=== PATIENT | female | born 1975 | race Caucasian/White ===

== ENCOUNTER 2019-09-27 19:11 | Emergency (ER) | payer MEDICAID, SELFPAY ==
[2019-09-27 19:22] VITALS: BP 147/82; PULSE 87; RESP 16; TEMP 36.5; O2SAT 99
--- NOTE | 2019-09-27 19:31 | ED.GENADULT ---
HPI - General Adult General Chief complaint: Upper Respiratory Infection Stated complaint: cough ears sore throat Time Seen by Provider: 09/27/19 19:31 Source: patient Mode of arrival: ambulatory Limitations: no limitations History of Present Illness HPI narrative: 43-year-old female patient presents to the [facility] with complaints of cold symptoms for the past week. Patient states she has had pain to the left ear along with sore throat pain. Patient states she has had a cough with some shortness of breath at times. Patient states she only has chest pain when she coughs. Patient states she is an active smoker. Denies getting a flu shot this year. Patient denies taking anything for her symptoms Related Data Allergies Allergy/AdvReac Type Severity Reaction Status Date / Time Penicillins Allergy Hives Verified 09/27/19 19:41 Review of Systems Review of Systems: Narrative: CONSTITUTIONAL: Denies fever, chills, or sweats. EYES: Denies visual changes, redness, or discharge. ENT: Positive rhinorrhea, congestion, sore throat, and left otalgia. CARDIOVASCULAR: Denies chest pain, palpitations, or edema. RESPIRATORY: Positive cough with dyspnea. GASTROINTESTINAL: Denies abdominal pain, nausea, vomiting, or diarrhea. GENITOURINARY: Denies dysuria or hematuria. SKIN: Denies rash or itching. MUSCULOSKELETAL: Denies back pain, joint pain, or myalgia. NEUROLOGIC: Denies headache, numbness, or weakness. PSYCHIATRIC: Denies anxiety or depression. PMFSH Comments At the time of my signature I agree with nursing past medical history, surgical, social, and family history. There is no relevant family history pertinent to the presenting complaint. Exam Narrative: Exam Narrative: GENERAL: Well-appearing, well-nourished, and in no acute distress. HEAD: Normocephalic, atraumatic. No tenderness noted to frontal maxillary sinuses on palpation. EYES: PERRLA and EOMI. ENT: Nares with erythema and edema noted bilaterally, no rhinorrhea or epistaxis. Mucous membranes moist. Posterior pharynx with 2+ tonsil enlargement erythema noted. Bilateral TMs are clear with no erythema or foreign bodies in the canal. NECK: Supple. No lymphadenopathy CHEST: Patient has some expiratory wheezing noted to bilateral lower lobes on auscultation. No respiratory distress. Patient able talk in clear complete sentences. No tripoding noted. HEART: Regular rate and rhythm. No murmur heard. Normal peripheral pulses. ABDOMEN: Soft, nontender, nondistended, normal active bowel sounds. EXTREMITIES: Normal range of motion. No edema. SKIN: Warm, dry, no rash. NEURO: No focal deficits. Alert and oriented x3. Course Reevaluation(s) Reevaluation #1: Reevaluated patient after DuoNeb was completed. Patient states that she does feel like she can breathe a little bit easier. Patient's lungs are clear to bilateral upper and lower lobes. Discussed with her that her strep today is negative. Discussed with her she can get an [id number] antihistamine and a nasal steroid to help with the congestion symptoms and I will prescribe her an oral steroid as well as an inhaler to help with the coughing and wheezing symptoms. Patient verbalized understanding denies any other questions or concerns at this time. Date: 09/27/19 Time: 20:12 Vital Signs Vital signs: Vital Signs Temperature 36.5 C 09/27/19 19:22 Pulse Rate 87 09/27/19 19:22 Respiratory Rate 16 09/27/19 19:22 Blood Pressure 147/82 H 09/27/19 19:22 Pulse Oximetry 99 09/27/19 19:22 Temperature 36.5 C 09/27/19 19:22 Pulse Rate 87 09/27/19 19:22 Respiratory Rate 16 09/27/19 19:22 Blood Pressure 147/82 H 09/27/19 19:22 Pulse Oximetry 99 09/27/19 19:22 Vital signs reviewed. The patient has been informed that they may have pre-hypertension or Hypertension based on a BP reading in the department. I recommend that the patient call the primary care provider listed on their discharge instructions or a phy
[2019-09-27] MEDS: IPRATROPIUM BR 0.02% INH SOLN 0.5 MG/2.5 ML VIAL INHALATION (19:46)
[2019-09-27] MEDS: ALBUTEROL SULFATE NEB 2.5 MG/3 ML INH INHALATION (19:46)
== END 2019-09-27 20:15 | disposition home or self-care (01) ==
PROVIDERS: Emergency Provider Nurse Practitioner Family
DX: J06.9 Acute upper respiratory infection, unspecified (principal); R05 Cough; J02.9 Acute pharyngitis, unspecified
CPT/HCPCS: 87081; 87880; 94640; 99213; G0463

== ENCOUNTER 2020-11-14 15:09 | Emergency (ER) | payer OTHER, SELFPAY ==
--- NOTE | ~2020-11-14 | XR_ITS ---
EXAMINATION: XR chest 2V DATE: 11/14/2020 16:27 INDICATION: Right upper back pain TECHNIQUE: PA and lateral views of the chest are obtained. COMPARISON: None available FINDINGS: The lungs are free of acute opacities. There is no pleural effusion or pneumothorax. The ca rdiomediastinal silhouette is normal. There is mild thoracic spondylosis. There is mild thoracic dext rocurvature. IMPRESSION: 1. No acute cardiopulmonary abnormality. Reviewed, dictated and finalized at location A.
[2020-11-14 15:25] VITALS: BP 168/80; PULSE 79; RESP 18; TEMP 36.7; O2SAT 98
--- NOTE | 2020-11-14 15:30 | ED.FEMALEGU ---
HPI - Female Genitourinary General Chief complaint: Urogenital-Female Stated complaint: Urogenital-Female Time Seen by Provider: 11/14/20 15:30 Source: patient and RN notes reviewed Mode of arrival: ambulatory Limitations: no limitations History of Present Illness HPI Narrative: 44-year-old female presents with concern for suprapubic pressure, worse on the left, dark malodorous urine for several days. She also reports 2-month history of right upper back pain. Reports back pain worsens with movement, reports back pain does not improve with [id number] medications. 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 She reports she is a smoker, smokes approximately 8 cigarettes daily. She denies any abnormal vaginal discharge, bleeding. Reports she has had UTIs in the past. MD elicited complaint: UTI Related Data Allergies Allergy/AdvReac Type Severity Reaction Status Date / Time Penicillins Allergy Hives Verified 11/14/20 15:20 Review of Systems Review of Systems: Narrative: CONSTITUTIONAL: Denies malaise, chills, sweats, or fever. CARDIOVASCULAR: Denies chest pain, palpitations, or edema. RESPIRATORY: Denies cough or dyspnea. GASTROINTESTINAL: Denies abdominal pain, nausea, vomiting, diarrhea, bloody, or mucous stools. GENITOURINARY: Denies dysuria or hematuria. Reports frequency, dark-colored urine, foul-smelling urine. SKIN: Denies rash or itching. MUSCULOSKELETAL: Reports right upper back pain. Denies myalgia. All systems reviewed & are unremarkable except as noted in HPI and below PMFSH Comments At time of signature, agree with nursing past medical, surgical, social and family history. There is no relevant family history pertinent to the presenting complaint Exam Narrative: Exam Narrative: GENERAL: Well-appearing, well-nourished, and in no acute distress. HEAD: Normocephalic. EYES: PERRLA, conjunctivae clear. NECK: Supple. No lymphadenopathy CHEST: Clear to auscultation, breath sounds equal. No bony deformities or asymmetry. No respiratory distress. HEART: Regular rate and rhythm. ABDOMEN: Soft, nontender upon palpation, nondistended, normal active bowel sounds, no palpable or pulsatile masses, no guarding. No CVA tenderness SKIN: Warm, dry, no rash. NEURO: Alert and oriented x3. PSYCH: Normal mood and affect Course Course Emergency Course: Patient is aware of diagnosis, understands and agrees to treatment plan. Anticipatory guidance given. Patient agrees to follow-up as directed and is aware of reasons to seek care at the emergency department. Portions of this record may have been created with voice recognition software Vital Signs Vital signs: Reviewed. Patient has been instructed to follow up with her primary care provider within the next week regarding her elevated blood pressure today. MDM - Female Genitourinary MDM Narrative Medical decision making narrative: No risk factors or findings concerning for epidural abscess, diskitis, vertebral osteomyelitis, cord compression, cauda equina, vertebral fracture or bone malignancy, AAA, or pyelonephritis. Patient instructed to consider further imaging and workup through their primary care physician as an outpatient if symptoms persist. Exam findings and UA show no acute concerns or changes; patient is non-toxic appearing and is in no distress. Patient is appropriate for outpatient treatment and follow-up. Imaging Data My impression: Images reviewed, interpreted by radiologist, agree, see report. Radiologist's impression: EXAMINATION: XR chest 2V DATE: 11/14/2020 16:27 INDICATION: Right upper back pain TECHNIQUE: PA and lateral views of the chest are obtained. COMPARISON: None available FINDINGS: The lungs are free of acute opacities. There is no pleural effusion or pneumothorax. The cardiomediastinal silhouette is normal. There is mild thoracic spondylosis. There is mild thoracic dextrocurvature. IMPRESSION: 1. No acu
== END 2020-11-14 16:34 | disposition home or self-care (01) ==
PROVIDERS: Emergency Provider Nurse Practitioner
DX: R82.90 Unspecified abnormal findings in urine (principal); M54.6 Pain in thoracic spine; Z87.440 Personal history of urinary (tract) infections
CPT/HCPCS: 71046; 81003; 81025; 87086; 87088; 99213; G0463

== ENCOUNTER 2022-03-17 10:29 | Emergency (ER) | payer OTHER, SELFPAY ==
[2022-03-17 10:34] VITALS: BP 141/75; PULSE 83; RESP 14; TEMP 36.8; O2SAT 96
--- NOTE | 2022-03-17 10:37 | ED.URI ---
HPI - URI/Sore Throat General Chief Complaint: Upper Respiratory Infection Stated Complaint: Chest Congestion/Cough Time Seen by Provider: 03/17/22 10:37 Source: patient Mode of arrival: ambulatory Limitations: no limitations History of Present Illness HPI Narrative: Ms. Soler is a 46-year-old female patient presenting to the clinic today with cough and chest congestion x5 days. She reports she has had a productive cough with yellow/green phlegm with wheezing and shortness of breath. Is a current smoker and has history of asthma. She denies any fever or chills. No known covid exposure. States that she did a covid test on Wednesday and it was negative. MD elicited complaint: cough and nasal congestion Related Data Home Medications Medication Instructions Recorded Confirmed albuterol sulfate 90 mcg/actuation 2 puff inhalation Q4-6H PRN 03/17/22 03/17/22 aerosol inhaler Shortness Of Breath Or Wheezing Allergies Allergy/AdvReac Type Severity Reaction Status Date / Time Penicillins Allergy Hives Verified 03/17/22 10:47 Review of Systems Review of Systems: Pertinent positives per HPI. Patient denies any fever, chills, rash, headache, visual changes, dizziness, shortness of breath, chest pain, palpitations, nausea, vomiting, diarrhea, constipation, abdominal pain, or any urinary issues. PMFSH Comments At the time of my signature, I reviewed and agree with the nursing past medical, surgical, social, and family history. There is no relevant family history pertinent to the patient complaint. Exam Narrative: General: Well-developed, well nourished, in no apparent distress Head: Normocephalic, atraumatic Eyes: Pupils equally round and reactive to light bilaterally, EOM intact, sclera and conjunctive clear, no discharge, lids normal Ears: TMs intact and clear, ear canals clear, no drainage, grossly hearing normal. Nose: Nares patent, no discharge, no inflammation, no sinus tenderness. Mouth: Oral pharynx without lesions or masses, good dentition, MMM. Neck: Supple, trachea midline, no enlargement of anterior or posterior cervical nodes, no thyroid masses or goiter palpable. Cardio: Regular rate and rhythm, s1 and s2 normal, no murmur appreciated. Resp: Expiratory wheezing posteriorly in right upper and left upper lobes, diminished in the bases, no rhonchi, rales, or rubs Course Course Emergency Course: Portions of this record may have been created with voice recognition software. Level of Care: Express Care Visit Vital Signs Vital signs: Vital signs reviewed MDM - URI/Sore Throat MDM Narrative Medical decision making narrative: At the time of visit patient is resting comfortably on exam table. She is a current smoker with a productive yellow-green cough with expiratory wheezing. History of asthma. I will treat her as an asthma exacerbation and give her prescription for some Tessalon Perles, prednisone, azithromycin, and albuterol inhaler. Supportive measures were discussed with the patient she voiced understanding of discharge instructions and agrees to the treatment plan Differential Diagnosis Differential diagnosis: Likely upper respiratory infection, sinusitis, viral infection, bronchitis, influenza, pharyngitis and other (COVID) Discharge Plan Discharge Clinical Impression: Bronchitis Patient Disposition: Home, Self-Care Condition: Stable Instructions: Antibiotic Form, Acute Bronchitis (ED) Additional Instructions: Take prescription medications only as prescribed- prednisone, albuterol inhaler, azithromycin, and tessalon pearls as prescribed. Increase fluids and stay well hydrated Tylenol/motrin for pain/fever Flonase and OTC antihistamines as directed Vicks vapor rub to open sinuses Sinus rinses for congestion Cepacol spray, cough drops, throat lozenges, warm tea with honey/lemon, gargle salt water to soothe throat BRAT diet for diarrhea Clear liquids x 24 hours then advan
== END 2022-03-17 10:55 | disposition home or self-care (01) ==
PROVIDERS: Emergency Provider Nurse Practitioner Family
DX: J40 Bronchitis, not specified as acute or chronic (principal)
CPT/HCPCS: 99213; G0463

== ENCOUNTER 2022-04-20 12:11 | Emergency (ER) | payer OTHER, SELFPAY ==
--- NOTE | ~2022-04-20 | XR_ITS ---
EXAMINATION: XR chest 2V DATE: 04/20/2022 12:41 INDICATION: Cough TECHNIQUE: Cough COMPARISON: 11/14/2020 FINDINGS: The lungs are free of acute opacities. No pleural effusion or pneumothorax. The cardiomedia stinal silhouette is normal. There is mild thoracic spondylosis. IMPRESSION: 1. No acute cardiopulmonary abnormality. Reviewed, dictated and finalized at location B.
[2022-04-20 12:16] VITALS: BP 148/86; PULSE 77; RESP 14; TEMP 36.6; O2SAT 100
--- NOTE | 2022-04-20 12:38 | ED.URI ---
HPI - URI/Sore Throat General Chief Complaint: Upper Respiratory Infection Stated Complaint: Ear Pain/Sore Throat Time Seen by Provider: 04/20/22 12:38 Source: patient and RN notes reviewed Mode of arrival: ambulatory Limitations: no limitations History of Present Illness HPI Narrative: 46 y/o female presented for c/o right ear and right sided throat pain for 2 days. Endorses she has been coughing since 03/17/22, recent treatment for bronchitis, completed steroids and antibiotics from pcp. Denies shortness of breath, chest pain, wheezing, nausea, vomiting, fever. States her family was recently ill. MD elicited complaint: cough Related Data Home Medications Medication Instructions Recorded Confirmed budesonide-formoterol HFA 160 1 puff inhalation EVERY OTHER DAY 04/20/22 04/20/22 mcg-4.5 mcg/actuation aerosol inhaler (Symbicort) bupropion HCl 150 mg 24 hr tablet, 150 mg PO DAILY 04/20/22 04/20/22 extended release meloxicam 15 mg tablet 15 mg PO DAILY 04/20/22 04/20/22 nicotine 21 mg/24 hr daily 1 patch topical USEASDIRECTD 04/20/22 04/20/22 transdermal patch Allergies Allergy/AdvReac Type Severity Reaction Status Date / Time Penicillins Allergy Hives Verified 04/20/22 12:31 Review of Systems Review of Systems: CONSTITUTIONAL: denies malaise, chills, sweats, fever EYES: Denies visual changes, redness, or discharge ENT: Reports rhinorrhea, congestion, otalgia, sore throat CARDIOVASCULAR: Denies chest pain, palpitations, edema RESPIRATORY: Reports cough, post nasal drainage. Denies dyspnea GASTROINTESTINAL: Denies abdominal pain, nausea, vomiting, diarrhea SKIN: Denies rash or itching MUSCULOSKELETAL: denies myalgia NEUROLOGIC: Denies headache Exam Narrative: GENERAL: well-appearing EYES: conjunctivae clear ENT: Mucous membranes moist. TM pearly tony with dull light reflex bilaterally; no tragal tenderness. Oropharynx erythematous without lesions or exudate, no drooling, no hoarseness, no trismus, uvula midline. No tripod positioning, muffled voice, soft palate or pharyngeal wall bulging NECK: Supple. No lymphadenopathy CHEST: Clear to auscultation, diminished in bases. breath sounds equal. HEART: Regular rate and rhythm. SKIN: Warm, dry, no rash. NEURO: Alert and oriented x3. Course Course Emergency Course: Patient is aware of diagnosis, understands and agrees to treatment plan. Anticipatory guidance given. Patient agrees to follow-up as directed and is aware of reasons to seek care at the emergency department. Portions of this record may have been created with voice recognition software Level of Care: Express Care Visit Vital Signs Vital signs: Vital Signs Temperature 97.8 F 04/20/22 12:16 Pulse Rate 77 04/20/22 12:16 Respiratory Rate 14 04/20/22 12:16 Blood Pressure 148/86 H 04/20/22 12:16 Pulse Oximetry 100 04/20/22 12:16 Oxygen Delivery Room Air 04/20/22 12:16 Temperature 97.8 F 04/20/22 12:16 Pulse Rate 77 04/20/22 12:16 Respiratory Rate 14 04/20/22 12:16 Blood Pressure 148/86 H 04/20/22 12:16 Pulse Oximetry 100 04/20/22 12:16 Oxygen Delivery Room Air 04/20/22 12:16 reviewed MDM - URI/Sore Throat MDM Narrative Medical decision making narrative: CXR reviewed with pt. Strep negative. advised supportive measures and signs/symptoms to go to the ER. Pt is appropriate for outpt treatment and f/u. Differential Diagnosis Differential diagnosis: Likely upper respiratory infection, sinusitis and viral infection Lab Data Labs: Strep Screen Presumptive Negative *(Reference Range: Negative)* Imaging Data Radiologist's impression: Patient: Joseline Soler : 1975 MR#: [id number] Age/Sex: 46 / F Acct:[id number] Loc: [facility]? ? ADM Date: 04/20/22Attending Dr: Ordering Physician: Mónica Robison APRN Date of Service: 04/20/22 Procedure(s): XR chest 2V Accession Num
== END 2022-04-20 13:38 | disposition home or self-care (01) ==
PROVIDERS: Emergency Provider Nurse Practitioner Family; PCP Internal Medicine
DX: J06.9 Acute upper respiratory infection, unspecified (principal)
CPT/HCPCS: 71046; 87081; 87880; 99213; G0463

== ENCOUNTER 2024-06-21 14:16 | Emergency (ER) | payer OTHER, SELFPAY ==
[2024-06-21 14:22] VITALS: BP 141/79; PULSE 80; RESP 16; TEMP 36.5; O2SAT 99
--- NOTE | 2024-06-21 15:21 | ED.URI ---
HPI - URI/Sore Throat General Chief Complaint: Upper Respiratory Infection Stated Complaint: Sore Throat Time Seen by Provider: 06/21/24 14:50 Source: patient, RN notes reviewed and old records reviewed Mode of arrival: ambulatory Limitations: no limitations History of Present Illness HPI Narrative: 48 year old female presents to [facility] care with complaints of sore throat, cough, some vomiting from coughing for one week duration, reports no fevers. Patient reports that she has taken some OTC cold medication. Patient reports that daughter diagnosed with strep today in clinic. MD elicited complaint: cough, sore throat, rhinorrhea and nasal congestion Onset (ago): week(s) (1) Pain scale (0-10): 8 Able to tolerate fluids by mouth: Yes Treatments prior to arrival: cold medicine Related Data Home Medications Medication Instructions Recorded Confirmed drospirenone (contraceptive) 4 mg 06/21/24 (28) tablet (Slynd) Allergies Allergy/AdvReac Type Severity Reaction Status Date / Time Penicillins Allergy Hives Verified 06/21/24 14:38 Review of Systems Review of Systems: CONSTITUTIONAL:Reports malaise, no chills, sweats, or fever. EYES: Denies visual changes, redness, or discharge. ENT: Reports rhinorrhea, congestion,no sinus pain,no otalgia and positive for sore throat. CARDIOVASCULAR: Denies chest pain, palpitations, or edema. RESPIRATORY: Reports cough.? Denies dyspnea. GASTROINTESTINAL: Denies abdominal pain,positive for nausea, vomiting,no diarrhea SKIN: Denies rash or itching. MUSCULOSKELETAL: Denies myalgia. NEUROLOGIC: Denies headache. All systems reviewed & are unremarkable except as noted in HPI and below PMFSH Past Medical History Medical History (Updated 06/22/24 @ 14:46 by Sofia Holloway NP) Asthma Bronchitis UTI (urinary tract infection) Social History Social History (Updated 06/22/24 @ 14:42 by Sofia Holloway NP) Smoking status: Current every day smoker Tobacco type: cigarettes Alcohol intake: current Alcohol use details: social Substance use: unknown Living arrangements: with family Gender identity (if verbalized by the patient): Female Comments At time of signature, agree with nursing past medical, surgical, social and family history. There is no relevant family history pertinent to the presenting complaint Exam Narrative: GENERAL: Well-appearing, well-nourished, and in no acute distress. HEAD: Normocephalic EYES: PERRLA, conjunctivae clear ENT: Nares clear, turbinates edematous and erythematous, clear discharge. Mucous membranes moist. TM pearly tony with dull light reflex bilaterally; no tragal tenderness. Oropharynx erythematous without lesions. Tonsils not enlarged and without exudate, no drooling, no hoarseness, no trismus, uvula midline.post nasal drainage NECK: Supple. No lymphadenopathy CHEST: Clear to auscultation, breath sounds equal. No wheezing, rhonchi, rales, or stridor. No respiratory distress, speaks in full sentences.dry cough SAO2 99% on room air HEART: Regular rate and rhythm. No murmur heard. SKIN: Warm, dry, no rash. NEURO: Alert and oriented x3. PSYCH: Normal mood and affect Course Course Emergency Course: Patient is aware of diagnosis, understands and agrees to treatment plan.? Anticipatory guidance given.? Patient agrees to follow-up as directed and is aware of reasons to seek care at the emergency department. Portions of this record may have been created with voice recognition software Level of Care: Express Care Visit Vital Signs Vital signs: Vital Signs Temperature 36.5 C 06/21/24 14:22 Pulse Rate 80 06/21/24 14:22 Respiratory Rate 16 06/21/24 14:22 Blood Pressure 141/79 H 06/21/24 14:22 Pulse Oximetry 99 06/21/24 14:22 Oxygen Delivery Room Air 06/21/24 14:22 Temperature 36.5 C 06/21/24 14:22 Pulse Rate 80 06/21/24 14:22 Respiratory Rate 16 06/21/24 14:22 Blood Pressure 141/79 H 06/21/24 14:22 Pulse Oximetry 99 06/21/24 14:22 Oxygen Delivery Room Air 06/21/24 14:22 Reviewed MDM - URI/Sore Throat MDM Narrative Medical decision making narrative: Differential diagnosis considered: Mason virus, strep pharyngitis, allergic rhinitis, upper respiratory tract infection, sinusitis, rhinosinusitis, nasopharyngitis. viral pharyngitis, otitis media, otitis externa, pneumonia, bronchitis, viral cough syndrome, viral syndrome, and influenza.? Exam findings show no acute concerns or changes; patient is non-toxic appearing and is in no distress.? Patient is appropriate for outpatient treatment and follow-up. Differential Diagnosis Differential diagnosis: Likely upper respiratory infection, viral infection, pharyngitis and other (strep pharyngitis, cough) Medical Records Attestation: I reviewed the patient's medical records. Lab Data Attestation: I reviewed the patient's lab results. Lab results narrative: Strep screen negative culture sent Labs: Lab Results 06/21/24 Range/Units 15:40 POC Grp A Strep Screen Negative (Negative) Critical Care Time Critical Care Time Critical Care Time: No Discharge Plan Discharge Clinical Impression: Congestion of nasal sinus Cough Qualifiers: Cough type: acute Qualified Code(s): R05.1 - Acute cough Patient Disposition: Home, Self-Care Condition: Stable Instructions: Antibiotic Form, Acute Cough (ED) Additional Instructions: Increase fluids especially juices and water [id number] cough and cold medicine of your choice for your symptoms Zyrtec Claritin or Louisa daily include Coricidin brand decongestant Tylenol or ibuprofen Steroids as directed--take with food heat to the face 20-30 minutes 4-6 times a day for pain Salt water gargles, throat lozenges or throat sprays as desired If your symptoms persist, change or worsen significantly before you can contact your personal physician then please, without delay, go to the emergency department for further evaluation. Follow-up with PCP in 7-10 days or sooner if needed Follow up with PCP soon in regards to your blood pressure which is elevated above threshold for referral. Blood pressure above 120/80 may indicate pre-hypertension. 141/79 Your strep test today was negative. A throat culture will be sent to the laboratory for further testing. IF the test is positive, you will receive a phone call within 48 hours and an appropriate antibiotic will be initiated at that time. Prescriptions: New prednisone 20 mg tablet 20 mg PO BID Qty: 10 0RF Rx Instructions: A.m. and early p.m. No Action Slynd 4 mg (28) tablet Follow-up/Referrals: Maude,MD Katarina [Primary Care Provider] - Time of Disposition: 15:26 Quality Aundrea Coma Scale Eyes: Open Verbal: Oriented and Alert Motor: Follows Commands Carson Coma Total Score: 15
[2024-06-21 15:42] LABS: EDSTREPNEGPOS1 Negative (Negative)
== END 2024-06-21 15:37 | disposition home or self-care (01) ==
PROVIDERS: Emergency Provider Registered Nurse; PCP Internal Medicine
DX: R09.81 Nasal congestion (principal); R05.1 Acute cough; J45.909 Unspecified asthma, uncomplicated; F17.210 Nicotine dependence, cigarettes, uncomplicated
CPT/HCPCS: 87081; 87880; 99213; G0463

== ENCOUNTER 2024-10-03 11:22 | Emergency (ER) | payer OTHER, SELFPAY ==
[2024-10-03 11:30] VITALS: BP 165/92; PULSE 109; RESP 18; TEMP 36.7; O2SAT 98
--- NOTE | 2024-10-03 11:50 | ED_ITS ---
HPI - General Adult General Chief complaint: Ear Stated complaint: Ear Pain/Sore Throat Source: patient Mode of arrival: ambulatory Limitations: no limitations History of Present Illness HPI narrative: Pt presents for evaluation of sick symptoms. Symptoms include bilateral ear pain, sore throat and cough for the past two days. She denies SOB, nausea, vomiting or diarrhea. She has not taken any medication for her symptoms. She smokes 1/2 ppd. Related Data Home Medications ?Medication ?Instructions ?Recorded ?Confirmed ?Last Taken ?Type drospirenone (contraceptive) 4 mg 06/21/24 Unknown History (28) tablet (Slynd) Allergies Allergy/AdvReac Type Severity Reaction Status Date / Time Penicillins Allergy Hives Verified 10/03/24 11:32 Review of Systems Review of Systems: CONSTITUTIONAL: Denies fever, chills, or sweats. EYES: Denies visual changes, redness, or discharge. ENT: Reports ear pain and sore throat CARDIOVASCULAR: Denies chest pain, palpitations, or edema. RESPIRATORY: Reports cough. Denies dyspnea. GASTROINTESTINAL: Denies abdominal pain, nausea, vomiting, or diarrhea. GENITOURINARY: Denies dysuria or hematuria. SKIN: Denies rash or itching. MUSCULOSKELETAL: Denies back pain, joint pain, or myalgia. NEUROLOGIC: Denies headache, numbness, dizziness, or weakness. PSYCHIATRIC: Denies anxiety or depression. PMFSH Past Medical History Medical History Asthma UTI (urinary tract infection) Bronchitis Surgical History Surgical History No pertinent past surgical history Family History Family History (Updated 10/03/24 @ 11:55 by VIRGINIA Cole, ) Mother Family history non-contributory Social History Social History Smoking status: Current every day smoker Tobacco type: cigarettes Alcohol intake: current Alcohol use details: social Substance use: unknown Living arrangements: with family Gender identity (if verbalized by the patient): Female Exam Narrative: GENERAL: Well-appearing, well-nourished, and in no acute distress. HEAD: Normocephalic, atraumatic. EYES: PERRLA and EOMI. ENT: Nares clear, no rhinorrhea or epistaxis. Mucous membranes moist. Oropharynx without tonsillar hypertrophy exudate or other lesions. Bilateral tympanic membranes erythematous and bulging NECK: Supple. No adenopathy or masses. No carotid bruits or JVD CHEST: Clear to auscultation. No respiratory distress. No wheezes rales or rhonchi HEART: Regular rate and rhythm. No murmur heard. Normal peripheral pulses. ABDOMEN: Soft, nontender, nondistended, normal active bowel sounds. EXTREMITIES: Normal range of motion. No edema. SKIN: Warm, dry, no rash. NEURO: No focal deficits. Alert and oriented x3. PSYCH: Normal mood and affect. Course Course Emergency Course: This is a 48-year-old female who presented for evaluation of sick symptoms. She has evidence of otitis media exam. Will treat with augmentin. She requested a script for ibuprofen for pain. She should follow up with primary provider and go to the ER for worsening symptoms. Pt in agreement with plan of care. Level of Care: Express Care Visit Vital Signs Vital signs: Vital Signs Temperature 36.7 C 10/03/24 11:30 Pulse Rate 109 H 10/03/24 11:30 Respiratory Rate 18 10/03/24 11:30 Blood Pressure 165/92 H 10/03/24 11:30 Pulse Oximetry 98 10/03/24 11:30 Oxygen Delivery Room Air 10/03/24 11:30 Temperature 36.7 C 10/03/24 11:30 Pulse Rate 109 H 10/03/24 11:30 Respiratory Rate 18 10/03/24 11:30 Blood Pressure 165/92 H 10/03/24 11:30 Pulse Oximetry 98 10/03/24 11:30 Oxygen Delivery Room Air 10/03/24 11:30 Medical Decision Making Vital Signs Vital Signs: Vital Signs Temperature 36.7 C 10/03/24 11:30 Pulse Rate 109 H 10/03/24 11:30 Respiratory Rate 18 10/03/24 11:30 Blood Pressure 165/92 H 10/03/24 11:30 Pulse Oximetry 98 10/03/24 11:30 Oxygen Delivery Room Air 10/03/24 11:30 Temperature 36.7 C 10/03/24 11:30 Pulse Rate 109 H 10/03/24 11:30 Respiratory Rate 18 10/03/24 11:30 Blood Pressure 165/92 H 10/03/24 11:30 Pulse Oximetry 98 10/03/24 11:30 Oxygen Delivery Room Air 10/03/24 11:30 Discharge Plan Discharge Clinical Impression: Otitis media Patient Disposition: Home, Self-Care Condition: Stable Instructions: Antibiotic Form, Ear Infection (ED) Patient Language: Cameroonian Prescriptions: New amoxicillin-pot clavulanate 875-125 mg tablet 1 tablet PO Q12H Qty: 20 0RF ibuprofen 800 mg tablet 800 mg PO TID PRN (Reason: pain) Qty: 60 0RF No Action Slynd 4 mg (28) tablet Follow-up/Referrals: Rosie Dubois DO [Physician] - Stand Alone Forms: Work/School Release IP Time of Disposition: 11:46
--- OUTSIDE RECORDS SUMMARY | 2024-10-03 13:32 | XMS_ITS | Referral Summary ---
Author Organization [facility] Medical Office Building B Address [address] [place] [address] Care Team Providers Care Transition Mgr Name Role Phone Taz Jameson MD Primary Care Provider [phone] Allergies Active Allergy Reactions Criticality Noted Date Comments Penicillins Medications drospirenone, contraceptive, (Slynd) tablet tablet TAKE 1 TABLET(4 MG) BY MOUTH DAILY 84 tablet 1 06/29/2024 Active Active Problems No known active problems Social History Tobacco Use Types Packs/Day Years Used Date Smoking Tobacco: Every Day Cigarettes Tobacco Cessation:Ready to Q uit: Not Asked; Counseling Given: Not Answered PHQ-2 Answer Date Recorded PHQ-2 Total Score (If total score is 3 or more points, staff should administer the PHQ-9) 0 06/25/2023 Comments No Sex and Gender Information Value Date Recorded Sex Assigned at Not on file Legal Sex Female 3:29 AM SENIOR RISK MANAGER Gender Identity Not on file Sexual Orientation Not on file Last Filed Vital Signs Vital Sign Reading Time Taken Comments Blood Pressure 130/72 06/25/2023 1:09 PM SENIOR RISK MANAGER Pulse 82 10/29/2014 2:33 PM CDT Temperature - - Respiratory Rate - - Oxygen Saturation 98% 10/29/2014 2:33 PM CDT Inhaled Oxygen Concentration - - Weight 76.7 kg (169 lb) 06/25/2023 1:09 PM SENIOR RISK MANAGER Height 154.9 cm (5' 1 ) 10/29/2014 2:33 PM CDT Body Mass Index 31.93 10/29/2014 2:33 PM CDT Plan of Treatment Not on file Procedures Procedure Name Priority Date/Time Associated Diagnosis Comments PAP AND HPV, REFLEX TO HPV GENOTYPES Routine 06/25/2023 2:09 PM SENIOR RISK MANAGER Well woman exam SCREENING MAMMOGRAM BILATERAL W ERIK Schedule Routine, Read Routine (OP Routine) 01/01/2021 4:15 PM CDT Encounter for screening mammogram for malignant neoplasm of breast from Last 3 Months or Most Recently Relevant to Health Maintenance Results * Pap and HPV, reflex to HPV Genotypes (06/25/2023 2:09 PM SENIOR RISK MANAGER) CLINICAL INFORMATION: [facility] Comment:Routine exam LMP [facility] [employer] [facility] Comment:02/2023 Previous Pap [facility] Comment:NONE GIVEN Prev. Bx [facility] Comment:NONE GIVEN SOURCE: [facility] Comment:Cervix, Endocervix Pap, specimen adequacy [facility] Comment: Satisfactory for evaluation. Endocervical/transformation zone component present. HPV interp [facility] Comment: Cytology Results: Negative for intraepithelial lesion or malignancy. Patient Escort Que [facility] Comment: BES, CT(ASCP) CT screening location: [place] [address] [place] [address] Comment [facility] Comment: EXPLANATORY NOTE: The Pap is a screening test for cervical cancer. It is not a diagnostic test and is subject to false negative and false positive results. It is most reliable when a satisfactory sample, regularly obtained, is submitted with relevant clinical findings and history, and when the Pap result is evaluated along with historic and current clinical information. EFFECTIVE JULY 05, 2023, the version of ThinPrep you ordered, commonly known as manual ThinPrep, will be DISCONTINUED. An alternative form of ThinPrep, called ThinPrep Imaging, will continue to be available. For a copy of the client communication (TIS Client Letter) showing TIS test codes, see www.[employer]/Resources, and navigate to Well-Woman>Physician Materials>TIS Client Letter. You can also call for test code assistance. Human papillomavirus DNA, High Risk E6/E7 Not Detected NOT DETECTED [employer] [place] Comment: Not Detected High Risk HPV types (16,18,31,33,35,39,45,51,52, 56,58,59,66,68) were not detected. Other HPV types which cause anogenital lesions may be present. The significance of the other types of HPV in malignant processes has not been established. Methodology: Real Time PCR Thin prep 06/25/2023 2:09 PM SENIOR RISK MANAGER 06/28/2023 6:45 AM SENIOR RISK MANAGER Joseline Tapia DOUBLE END TENONER OPERATOR LAB CYTOLOGY ORDERABLES Final Re sult [facility] [address] [place] [address] [employer] [facility] [address] [facility] [place] [address] * Screening Mammogram Bilateral W Erik (01/01/2021 4:15 PM CDT) Anatomical Region Laterality Modality Breast Bilateral Mammography 01/02/2021 8:16 AM CDT Impressions 01/02/2021 8:16 AM CDT There is no mammographic evidence of malignancy. A 1 year screening mammogram is recommended. BI-RADS: 1 - Negative. The patient will be entered into a reminder system with a target due date of 1 year for her next mammogram. Electronically signed by: Kika Ulrich MD Narrative 01/02/2021 8:16 AM CDT EXAMINATION: SCREENING MAMMOGRAM BILATERAL W ERIK ORDERING HEALTHCARE PROVIDER: ART PERLA HISTORY: Routine screening mammography. COMPARISON: None TECHNIQUE: CC and MLO views of the bilateral breasts were obtained with digital technique using breast tomosynthesis with C view. Computer aided detection was utilized. FINDINGS: DENSITY: There are scattered fibroglandular elements in the bilateral breasts. BREASTS: There are no suspicious masses, suspicious calcifications, or other suspicious findings in either breast. There has been no suspicious interval change. us Art Perla MD IMG MAMMO PROCEDURES Final Re sult from Last 3 Months or Most Recently Relevant to Health Maintenance Insurance [facility] Care Teams Transition Mgr Relationship Specialty Start Date End Date Taz Jameson MD PCP - General 09/29/19
--- OUTSIDE RECORDS SUMMARY | 2024-10-03 13:32 | XMS_ITS | Clinical Summary ---
Author Organization [facility] Address [address] [place] [address] Care Team Providers Care Reinforcing Iron And Rebar Workers Name Role Phone Ida Vera TEST DIRECTOR-CALENDER WIND UP HELPER Primary Care Provider + Source Comments [facility],non-owned Affiliates and Associated Physician Practices is amultiple site organization consisting of ambulatory clinics and hospital sitesin [place], [place], [place] and [place]. This disclosure is being madepursuant to the Care Everywhere program and may not contain all information available regarding this patient. Last updated 18.[facility] [employer] Social History Tobacco Use Types Packs/Day Years Used Date Smoking Tobacco: Never Assessed Sex and Gender Information Value Date Recorded Sex Assigned at Female 10/06/2023 10:43 AM DEVELOPMENT INTERN Gender Identity Not on file Sexual Orientation Not on file Plan of Treatment Health Maintenance Due Date Last Done Comments COLOGUARD (AGES 45-75) - COL ON CA SCREENING 1977 COLON MONITORING 1977 COLONOSCOPY - COLON CA SCREENING 1977 CT COLONOGRAPHY - COLON CA SCREENING 1977 Colorectal Cancer Screening 1977 FIT - COLON CA SCREENING 1977 FLEX SIG - COLON CA SCREENING 1977 LIPID TESTING 1977 MAMMOGRAM 1977 PAP SMEAR 1977 HIV SCREENING 1992 HEPATITIS C SCREENING 12/11/1995 DTAP/TDAP/TD VACCINES (1 - Tdap) 1996 HEPATITIS B VACCINE (1 of 3 - 19+ 3-dose series) 1996 COVID-19 VACCINE ( - 2023-2 5 season) 2024 INFLUENZA VACCINE (#1) 2024 DEPRESSION SCREENING 08/09/2024 ZOSTER VACCINE (1 of 2) 12/16/2027 HIB VACCINE Aged Out No longer eligi ble based on patient's age to complete this topic HPV VACCINE Aged Out No longer eligi ble based on patient's age to complete this topic MENINGOCOCCAL (Group B) VACCINE Aged Out No longer eligible based on patient's age to complete this topic MENINGOCOCCAL VACCINE Aged Out No jair sadiq eligible based on patient's age to complete this topic PNEUMOCOCCAL VACCINE Aged Out No long er eligible based on patient's age to complete this topic Care Teams Reinforcing Iron And Rebar Workers Relationship Specialty Start Date End Date Ida Vera, TEST DIRECTOR-CALENDER WIND UP HELPER [address] Condon [address] [place] [id number] PCP - General 10/05/19
--- OUTSIDE RECORDS SUMMARY | 2024-10-03 13:32 | XMS_ITS | Referral Summary ---
Author Organization [facility] Address [address] [place] [address] Care Team Providers Care Operational Trainer Name Role Phone Ida Vera SEAL MIXER-FEED BLENDER Primary Care Provider + Source Comments [facility],non-owned Affiliates and Associated Physician Practices is amultiple site organization consisting of ambulatory clinics and hospital sitesin [place], [place], [place] and [place]. This disclosure is being madepursuant to the Care Everywhere program and may not contain all information available regarding this patient. Last updated 18.[facility] Social History Tobacco Use Types Packs/Day Years Used Date Smoking Tobacco: Never Assessed Sex and Gender Information Value Date Recorded Sex Assigned at Female 10/06/2023 10:43 AM HVAC SALES REPRESENTATIVE Gender Identity Not on file Sexual Orientation Not on file Plan of Treatment Not on file Care Teams Operational Trainer Relationship Specialty Start Date End Date Ida Vera SEAL MIXER-FEED BLENDER [address] [facility] Condon [address] [place] [phone] PCP - General 10/05/19
--- OUTSIDE RECORDS SUMMARY | 2024-10-03 13:32 | XMS_ITS | Clinical Summary ---
Author Organization [facility] Medical Office Building B Address [address] [place] [address] Care Team Providers Care Potato Picker Name Role Phone Taz Jameson MD Primary Care Provider [phone] Allergies Active Allergy Reactions Criticality Noted Date [...] on file Legal Sex Female 3:29 AM NURSE STAFF INDUSTRIAL Gender Identity Not on file Sexual Orientation Not on file Obstetrics History Para Term AB IAB SAB Ectopic Multiple Livin g Live Births 3 1 1 Date Outcome GA Total Labor Labor/2nd/3rd Weight Sex Type Anes PTL Kaya A1 A5 Name Clin Term Last Filed Vital Signs Vital Sign Reading Time Taken Comments Blood Pressure 130/72 06/25/2023 1:09 PM NURSE STAFF INDUSTRIAL Pulse 82 10/29/2014 2:33 PM CDT Temperature - - Respiratory Rate - - Oxygen Saturation 98% 10/29/2014 2:33 PM CDT Inhaled Oxygen Concentration - - Weight 76.7 kg (169 lb) 06/25/2023 1:09 PM NURSE STAFF INDUSTRIAL Height 154.9 cm (5' 1 ) 10/29/2014 2:33 PM CDT Body Mass Index 31.93 10/29/2014 2:33 PM CDT Plan of Treatment Health Maintenance Due Date Last Done Comments Colon Cancer Screening-Colonoscopy 1977 Hepatitis C Screening 1977 Hepatitis B Screening 12/16/1995 Pneumococcal vaccine <65 (1 of 2 - PCV) 1996 Breast Cancer Screening-Mammogram 01/01/2022 021 Influenza Vaccine (#1) 2024 Cervical Cancer Screening 06/25/2024 06/25/2023 Depression Screening 06/25/2024 06/25/2023 Regular Well Visit/Exam 18-64 06/25/2024 06/25/2023 DTaP/Tdap/Td Vaccine (2 - Td or Tdap) 07/13/2033 07/13/2023 HPV Vaccines Aged Out No longer eligi ble based on patient's age to complete this topic Procedures Procedure Name Priority Date/Time Associated Diagnosis Comments PAP AND HPV, REFLEX TO HPV GENOTYPES Routine 06/25/2023 2:09 PM NURSE STAFF INDUSTRIAL Well woman exam SCREENING MAMMOGRAM BILATERAL W ERIK Schedule Routine, Read Routine (OP Routine) 01/01/2021 4:15 PM CDT Encounter for screening mammogram for malignant neoplasm of breast from Last 3 Months or Most Recently Relevant to Health Maintenance Results * Pap and HPV, reflex to HPV Genotypes (06/25/2023 2:09 PM NURSE STAFF INDUSTRIAL) CLINICAL INFORMATION: [facility] Comment:Routine exam LMP [facility] Comment:02/[address] [facility] Comment:NONE GIVEN Prev. Bx [employer] [facility] Comment:NONE GIVEN SOURCE: [employer] [facility] Comment:Cervix, Endocervix Pap, specimen adequacy [employer] [facility] Comment: Satisfactory for evaluation. Endocervical/transformation zone component present. HPV interp [employer] [facility] Comment: Cytology Results: Negative for intraepithelial lesion or malignancy. Support Services Manager [facility] [employer] [facility] Comment: BES, CT(ASCP) CT screening location: [place] [address] [place] [address] Comment [employer] [facility] Comment: EXPLANATORY NOTE: The Pap is a [...] Client Letter) showing TIS test codes, see www.[employer]/Resources, and navigate to [facility]oman>Physician Materials>TIS Client Letter. You can also call for test code assistance. Human papillomavirus DNA, High Risk E6/E7 Not Detected NOT DETECTED [facility] [employer] [facility] [place] Comment: Not Detected High Risk HPV types (16,18,31,33,35,39,45,51,52, 56,58,59,66,68) were not detected. Other HPV types which cause anogenital lesions may be present. The significance of the other types of HPV in malignant processes has not been established. Methodology: Real Time PCR Thin prep 06/25/2023 2:09 PM NURSE STAFF INDUSTRIAL 06/28/2023 6:45 AM NURSE STAFF INDUSTRIAL Joseline Tapia SNUFF BOX FINISHER LAB CYTOLOGY ORDERABLES Final Re sult [facility] [address] [place] [phone] [facility] [address] [place] [address] * Screening Mammogram Bilateral W Erik (01/01/2021 [...] There has been no suspicious interval change. Art Perla MD IMG MAMMO PROCEDURES Final Re sult from Last 3 Months or Most Recently Relevant to Health Maintenance Insurance [id number] [place] [address] [facility] Care Teams Potato Picker Relationship Specialty Start Date End Date Taz Jameson MD PCP - General 09/29/19
--- OUTSIDE RECORDS SUMMARY | 2024-10-03 13:32 | XMS_ITS | Patient Health Summary ---
Author Organization [facility] Address [address] [place] [address] Care Team Providers Care Scrum Master Name Role Phone Ida Vera Primary Care Provider + Note from [facility],non-owned Affiliates and Associated Physician Practices is amultiple site organization consisting of ambulatory clinics and hospital sitesin [place], [place], [place] and [place]. This disclosure is being madepursuant to the Care Everywhere program and may not contain all information available regarding this patient. Last updated 18.[facility] Social History Tobacco Use Types Packs/Day Years Used Date Smoking Tobacco: Never Assessed Sex and Gender Information Value Date Recorded Sex Assigned at Female 10/06/2023 10:43 AM NATURAL RESOURCE SPECIALIST Gender Identity Not on file Sexual Orientation Not on file Care Teams Scrum Master Relationship Specialty Start Date End Date Ida Vera APRN-CNP [address] [place] [address] Dr Condon [address] [place] [id number] PCP - General 10/05/19
== END 2024-10-03 11:51 | disposition home or self-care (01) ==
PROVIDERS: Emergency Provider Nurse Practitioner
DX: H66.93 Otitis media, unspecified, bilateral (principal); F17.210 Nicotine dependence, cigarettes, uncomplicated; J45.909 Unspecified asthma, uncomplicated
CPT/HCPCS: 99213; G0463

== ENCOUNTER 2025-02-28 13:04 | Emergency (ER) | payer OTHER, MEDICAID, SELFPAY ==
--- OUTSIDE RECORDS SUMMARY | 2025-02-28 13:11 | XMS_ITS | Clinical Summary ---
Author Organization [facility] Address [address] [place] [address] Care Team Providers Care Executive Search Consultant Name Role Phone Ida Vera DISTRICT MEDICAL EXAMINER-WAFER MOUNTER Primary Care Provider + Source Comments [facility],non-owned Affiliates and Associated Physician Practices is amultiple site organization consisting of ambulatory clinics and hospital sitesin [place], [place], [place] and [place]. This disclosure is being madepursuant to the Care Everywhere program and may not contain all information available regarding this patient. Last updated 18.[facility] [employer] Social History Tobacco Use Types Packs/Day Years Used Date Smoking Tobacco: Never Assessed Comments Unknown Sex and Gender Information Value Date Recorded Sex Assigned at Female 10/06/2023 10:43 AM COMMUNICATIONS OFFICER Legal Sex Female 6:29 AM COMMUNICATIONS OFFICER Gender Identity Not on file Sexual Orientation [...] SCREENING 1977 LIPID TESTING 1977 MAMMOGRAM 1977 HIV SCREENING 1992 HEPATITIS C SCREENING 12/11/1995 DTAP/TDAP/TD VACCINES (1 - Tdap) 1996 HEPATITIS B VACCINE (1 of 3 - 19+ 3-dose series) 1996 PAP SMEAR 1998 COVID-19 VACCINE (2023-2 5 season) 2024 DEPRESSION SCREENING 08/09/2024 INFLUENZA VACCINE (#1) 2025 ZOSTER VACCINE (1 of 2) 12/16/2027 HIB VACCINE Aged Out No longer eligi ble based on patient's age to complete this topic HPV VACCINE Aged Out No longer eligi ble based on patient's age to complete this topic MENINGOCOCCAL (Group B) VACC INE SHARED DECISION-MAKING Aged Out No longer eligibl e based on patient's age to complete this topic MENINGOCOCCAL GROUPS A/C/Y/W VACCINE Aged Out No longer eligible b ased on patient's age to complete this topic PNEUMOCOCCAL VACCINE Aged Out No long er eligible based on patient's age to complete this topic Insurance MEDICAID - OUT OF [facility] Care Teams Executive Search Consultant Relationship Specialty Start Date End Date Ida Vera, DISTRICT MEDICAL EXAMINER-WAFER MOUNTER [address] Yajaira [address], [address] [place] [address] PCP - General 10/05/19
--- OUTSIDE RECORDS SUMMARY | 2025-02-28 13:12 | XMS_ITS | Clinical Summary ---
Author Organization [facility] Medical Office Building B Address [address] [place] [address] Care Team Providers Care Bakery Pastry Internship Name Role Phone Taz Jameson MD Primary Care Provider [phone] Allergies Active Allergy Reactions Criticality Noted Date Comments Penicillins Medications drospirenone, contraceptive, (Slynd) tablet tablet TAKE 1 TABLET(4 MG) BY MOUTH DAILY 84 tablet 1 06/29/2024 Active Active Problems No known active problems Encounters Date Type Department Care Team Description 01/02/2025 Telephone [facility] [address] [place] [address] [address] [place] [address] Joseline Tapia, HAND CLOTH CUTTER from Last 3 Months Social History Tobacco Use Types Packs/Day Years [...] on file Legal Sex Female 3:29 AM 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 Gender Identity Not on file Sexual Orientation Not on file Obstetrics History Para Term AB IAB SAB Ectopic Multiple Livin g Live Births 3 1 1 Date Outcome GA Total Labor Labor/2nd/3rd Weight Sex Type Anes PTL Kaya A1 A5 Name Clin Term Last Filed Vital Signs Vital Sign Reading Time Taken Comments Blood Pressure 130/72 06/25/2023 1:09 PM 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 Pulse 82 10/29/2014 2:33 PM CDT Temperature - - Respiratory Rate - - Oxygen Saturation 98% 10/29/2014 2:33 PM CDT Inhaled Oxygen Concentration - - Weight 76.7 kg (169 lb) 06/25/2023 1:09 PM 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 Height 154.9 cm (5' 1) 10/29/2014 2:33 PM CDT Body Mass Index 31.93 10/29/2014 2:33 PM CDT Plan of Treatment Health Maintenance Due Date Last Done Comments Colon Cancer Screening-Colonoscopy 1975 Hepatitis C Screening 1975 Hepatitis B Screening 12/16/1995 Pneumococcal vaccine <65 (1 of 2 - PCV) 1996 Breast Cancer Screening-Mammogram 01/01/2022 021 Cervical Cancer Screening 06/25/2024 06/25/2023 Depression Screening 06/25/2024 06/25/2023 Regular Well Visit/Exam 18-64 06/25/2024 06/25/2023 Influenza Vaccine (Season Ended) 2025 DTaP/Tdap/Td Vaccine (2 - Td or Tdap) 07/13/203312/2022 Procedures Procedure Name Priority Date/Time Associated Diagnosis Comments PAP AND HPV, REFLEX TO HPV GENOTYPES Routine 06/25/2023 2:09 PM 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 Well woman exam SCREENING MAMMOGRAM BILATERAL W ERIK Schedule Routine, Read Routine (OP Routine) 01/01/2021 4:15 PM CDT Encounter for screening mammogram for malignant neoplasm of breast from Last 3 Months or Most Recently Relevant to Health Maintenance Results * Pap and HPV, reflex to HPV Genotypes (06/25/2023 2:09 PM 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) CLINICAL INFORMATION: [facility] Comment:Routine exam LMP [facility] Comment:02/2023 Previous Pap [facility] Comment:NONE GIVEN Prev. Bx [facility] Comment:NONE GIVEN SOURCE: [facility] Comment:Cervix, Endocervix Pap, specimen adequacy [facility] Comment: Satisfactory for evaluation. Endocervical/transformation zone component present. HPV interp [facility] Comment: Cytology Results: Negative for intraepithelial lesion or malignancy. [employer]line [employer] [facility] Comment: BES, CT(ASCP) CT screening location: [place] [address] [address] [place] Comment [facility] Comment: EXPLANATORY NOTE: The Pap [...] Client Letter) showing TIS test codes, see www.Karaz/Resources, and navigate to Well-Woman>Physician Materials>TIS Client Letter. You can also call for test code assistance. Human papillomavirus DNA, High Risk E6/E7 Not Detected NOT DETECTED [facility] Comment: Not Detected High Risk HPV types (16,18,31,33,35,39,45,51,52, 56,58,59,66,68) were not detected. Other HPV types which cause anogenital lesions may be present. The significance of the other types of HPV in malignant processes has not been established. Methodology: Real Time PCR Thin prep 06/25/2023 2:09 PM 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 06/28/2023 6:45 AM 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 Joseline Tapia HAND CLOTH CUTTER LAB CYTOLOGY ORDERABLES Final Re sult ALIN [facility] [address] [place] [address] [facility] [address] [facility] [place] [address] * Screening Mammogram Bilateral W Erik (01/01/2021 [...] mammogram. Electronically signed by: Kika Ulrich MD [facility] 01/02/2021 8:16 AM CDT EXAMINATION: SCREENING MAMMOGRAM [...] Most Recently Relevant to Health Maintenance Insurance * Guarantor: Joseline Soler Account Type Relation to Patient Date of Phone Billing Address Personal/Family Self 1975 [address] [place] [address] [facility] Care Teams Bakery Pastry Internship Relationship Specialty Start Date End Date Taz Jameson MD PCP - General 09/29/19
--- OUTSIDE RECORDS SUMMARY | 2025-02-28 13:12 | XMS_ITS | Referral Summary ---
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 TACTICAL OFFICER Gender Identity Not on file Sexual Orientation Not on file Last Filed Vital Signs Vital Sign Reading Time Taken Comments Blood Pressure 130/72 06/25/2023 1:09 PM STAFF AIR TACTICAL OFFICER Pulse 82 10/29/2014 2:33 PM CDT Temperature - - Respiratory Rate - - Oxygen Saturation 98% 10/29/2014 2:33 PM CDT Inhaled Oxygen Concentration - - Weight 76.7 kg (169 lb) 06/25/2023 1:09 PM STAFF AIR TACTICAL OFFICER Height 154.9 cm (5' 1) 10/29/2014 2:33 PM CDT Body Mass Index 31.93 10/29/2014 2:33 PM CDT Plan of Treatment Not on file Procedures Procedure Name Priority Date/Time Associated Diagnosis Comments PAP AND HPV, REFLEX TO HPV GENOTYPES Routine 06/25/2023 2:09 PM STAFF AIR TACTICAL OFFICER Well woman exam SCREENING MAMMOGRAM BILATERAL W ERIK Schedule Routine, Read Routine (OP Routine) 01/01/2021 4:15 PM CDT Encounter for screening mammogram for malignant neoplasm of breast from Last 3 Months or Most Recently Relevant to Health Maintenance Results * Pap and HPV, reflex to HPV Genotypes (06/25/2023 2:09 PM STAFF AIR TACTICAL OFFICER) CLINICAL INFORMATION: [facility] Comment:Routine exam LMP [facility] Comment:02/2023 Previous Pap [facility] Comment:NONE GIVEN Prev. Bx [facility] Comment:NONE GIVEN SOURCE: [facility] Comment:Cervix, Endocervix Pap, specimen adequacy [facility] Comment: Satisfactory for evaluation. Endocervical/transformation zone component present. HPV interp [facility] Comment: Cytology Results: Negative for intraepithelial lesion or malignancy. 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 [address] Comment [facility] Comment: EXPLANATORY NOTE: The Pap is a [...] Client Letter) showing TIS test codes, see [email or web address]/Resources, and navigate to Well-Woman>Physician Materials>TIS Client Letter. You can also call for test code assistance. Human papillomavirus DNA, High Risk E6/E7 Not Detected NOT DETECTED [facility] Comment: Not Detected High Risk HPV types (16,18,31,33,35,39,45,51,52, 56,58,59,66,68) were not detected. Other HPV types which cause anogenital lesions may be present. The significance of the other types of HPV in malignant processes has not been established. Methodology: Real Time PCR Thin prep 06/25/2023 2:09 PM STAFF AIR TACTICAL OFFICER 06/28/2023 6:45 AM STAFF AIR TACTICAL OFFICER us Joseline Tpaia CHECKER [employer] LAB CYTOLOGY ORDERABLES Final Re sult ALIN [facility] [address] [place] [address] [facility] [facility] [address] [place] [address] * Screening Mammogram Bilateral W Erik (01/01/2021 [...] Most Recently Relevant to Health Maintenance Insurance [facility] Care Teams Sound Engineer Audio Control Relationship Specialty Start Date End Date Taz Jameson MD PCP - General 09/29/19
[2025-02-28 13:20] VITALS: BP 183/84; PULSE 86; RESP 16; TEMP 36.9; O2SAT 97
--- NOTE | 2025-02-28 13:29 | ED_ITS ---
HPI - Extremity Injury (Upper) General Chief Complaint: Extremity Injury, Upper Stated Complaint: Right Hand and finger Injury Time Seen by Provider: 02/28/25 13:29 Source: patient Mode of arrival: ambulatory Limitations: no limitations History of Present Illness HPI narrative: 49 y/o female presented for c/o right hand swelling and pain. Onset yesterday. States she had to use a gun machine repetitively for 4 hours then developed swelling. Today she says she cannot fully close the hand due to swelling. Rates 05/18. Did not take anything for pain. She will have workmans comp papers completed by pcp Related Data Home Medications ?Medication ?Instructions ?Recorded ?Confirmed ?Last Taken ?Type drospirenone (contraceptive) 4 mg 06/21/24 Unknown History (28) tablet (Slynd) Allergies Allergy/AdvReac Type Severity Reaction Status Date / Time Penicillins Allergy Hives Verified 10/03/24 11:32 Review of Systems Review of Systems: CONSTITUTIONAL: Denies body aches, fever, chills EYES: Denies visual changes ENT: Denies rhinorrhea, congestion CARDIOVASCULAR: Denies chest pain, palpitations, or edema. RESPIRATORY: Denies cough or dyspnea. SKIN: Denies rash, itching, or wounds. MUSCULOSKELETAL: reports back pain, joint pain, or myalgia. NEUROLOGIC: Denies headache, numbness, tingling, or weakness. All systems reviewed & are unremarkable except as noted in HPI and below PMFSH Past Medical History Medical History Asthma UTI (urinary tract infection) Bronchitis Surgical History Surgical History No pertinent past surgical history Family History Family History (Updated 10/03/24 @ 11:55 by VIRGINIA Cole, ) Mother Family history non-contributory Social History Social History Smoking status: Current every day smoker Tobacco type: cigarettes Alcohol intake: current Alcohol use details: social Substance use: unknown Living arrangements: with family Gender identity (if verbalized by the patient): Female Comments At time of signature, I have reviewed and agree with nursing past medical, surgical, social and family history unless otherwise noted. Please see nursing chart for further information. There is no relevant family history pertinent to the presenting complaint Exam Narrative: GENERAL: Well-appearing CHEST: Speaks in full sentences. No respiratory distress. HEART: Regular rate and rhythm. Normal and equal peripheral pulses. EXTREMITIES: Right hand mild swelling noted. Right hand and digits have normal strength and sensation. slightly decreased strength with digit flexion, extension due to subjective pain. Range of motion slightly decreased due to subjective pain. No clubbing, erythema or cyanosis, noted. No tenderness. Blister intact to 4th digit distal phalanx. Skin intact. Normal digital cascade with flexion of fingers, but endorses pain to 4th and 5th. Normal sensation of each side of finger. Can perform 'okay' sign, 'cross over finger test of index and middle fingers' and 'thumbs up' sign. No scissoring. Normal thumb opposition. Good capillary refill and radial pulse. Distal capillary refill less than 3 seconds. SKIN: Warm, dry, no rash. NEURO: Alert and oriented x3. PSYCH: Normal mood and affect Course Course Emergency Course: Patient is aware of diagnosis, understands and agrees to treatment plan. Anticipatory guidance given. Patient agrees to follow-up as directed and is aware of reasons to seek care at the emergency department. Portions of this record may have been created with voice recognition software Level of Care: Express Care Visit Vital Signs Vital signs: Vital Signs Temperature 98.5 F 02/28/25 13:20 Pulse Rate 86 02/28/25 13:20 Respiratory Rate 16 02/28/25 13:20 Blood Pressure 183/84 H 02/28/25 13:20 Pulse Oximetry 97 02/28/25 13:20 Oxygen Delivery Room Air 02/28/25 13:20 Temperature 98.5 F 02/28/25 13:20 Pulse Rate 86 02/28/25 13:20 Respiratory Rate 16 02/28/25 13:20 Blood Pressure 183/84 H 02/28/25 13:20 Pulse Oximetry 97 02/28/25 13:20 Oxygen Delivery Room Air 02/28/25 13:20 Reviewed MDM - Extremity Injury (Upper) MDM Narrative Medical decision making narrative: Shared decision making, no imaging at this time. reviewed RX. bandaid applied to blister of right 4th digit distal phalanx. HUONG wrap to hand, ice pack provided, pt did not want it filled at this time Discussed physical exam findings. Advised supportive measures and signs/symptoms to go to the ER. Pt is appropriate for outpt treatment and f/u. Differential Diagnosis Differential diagnosis: Likely other (sprain/strain of wrist, Colles' fracture, wrist fracture, hand fracture, dislocation of finger, gout, cellulitis, arthritis, tendonitis) Discharge Plan Discharge Clinical Impression: Swelling of right hand Patient Disposition: Home Condition: Stable Instructions: Antibiotic Form, Tendinitis (ED) Additional Instructions: Your blood pressure reading was elevated (above 120/80) please follow-up with your primary care provider for further evaluation and management. If you develop worsening Blood Pressure symptoms, (headache, vision changes, dizziness, vomiting, chest pain, etc) go to the ER. Call 911. Rest. activity as tolerated elevate the right hand Apply ice 15-20 minute intervals several times a day Keep it wrapped with HUONG as needed to reduce swelling Motrin 800mg every 8 hours, alternate with Tylenol 1000mg every 8 hours as needed Follow up with your primary care provider next week, call to schedule appointment. go to the ER for worsening symptoms or concerns Patient Language: [place] Islander Prescriptions: New ibuprofen 800 mg tablet 800 mg PO TID PRN (Reason: pain) Qty: 15 0RF No Action Slynd 4 mg (28) tablet Follow-up/Referrals: PHYSICIAN,CHILD CARE ASSOCIATE TEACHER [Primary Care Provider] - Stand Alone Forms: Work/School Release IP Time of Disposition: 13:40
== END 2025-02-28 13:56 | disposition home or self-care (01) ==
PROVIDERS: Emergency Provider Nurse Practitioner Family
DX: R22.31 Localized swelling, mass and lump, right upper limb (principal); F17.210 Nicotine dependence, cigarettes, uncomplicated; J45.909 Unspecified asthma, uncomplicated
CPT/HCPCS: 99213; G0463

== ENCOUNTER 2025-04-13 14:40 | Emergency (ER) | payer OTHER, SELFPAY ==
--- OUTSIDE RECORDS SUMMARY | 2025-04-13 14:41 | XMS_ITS | Clinical Summary ---
Author Organization [facility] Medical Office Building B Address [address] [place] [address] Care Team Providers Care Review Specialist Name Role Phone Taz Jameson MD Primary Care Provider [phone] Allergies Active Allergy Reactions Criticality Noted Date [...] on file Legal Sex Female 3:29 AM DAY CARE HOME MOTHER Gender Identity Not on file Sexual Orientation Not on file Obstetrics History Para Term AB IAB SAB Ectopic Multiple Livin g Live Births 3 1 1 Date Outcome GA Total Labor Labor/2nd/3rd Weight Sex Type Anes PTL Kaya A1 A5 Name Clin Term Last Filed Vital Signs Vital Sign Reading Time Taken Comments Blood Pressure 130/72 06/25/2023 1:09 PM DAY CARE HOME MOTHER Pulse 82 10/29/2014 2:33 PM CDT Temperature - - Respiratory Rate - - Oxygen Saturation 98% 10/29/2014 2:33 PM CDT Inhaled Oxygen Concentration - - Weight 76.7 kg (169 lb) 06/25/2023 1:09 PM DAY CARE HOME MOTHER Height 154.9 cm (5' 1) 10/29/2014 2:33 [...] Well Visit/Exam 18-64 06/25/2024 06/25/2023 Influenza Vaccine (#1) 2025 DTaP/Tdap/Td Vaccine (2 - Td or Tdap) 07/13/203312/2022 Procedures Procedure Name Priority Date/Time Associated Diagnosis Comments PAP AND HPV, REFLEX TO HPV GENOTYPES Routine 06/25/2023 2:09 PM DAY CARE HOME MOTHER Well woman exam SCREENING MAMMOGRAM BILATERAL W ERIK Schedule Routine, Read Routine (OP Routine) 01/01/2021 4:15 PM CDT Encounter for screening mammogram for malignant neoplasm of breast from Last 3 Months or Most Recently Relevant to Health Maintenance Results * Pap and HPV, reflex to HPV Genotypes (06/25/2023 2:09 PM DAY CARE HOME MOTHER) CLINICAL INFORMATION: [facility] Comment:Routine exam LMP [facility] [employer] [facility] Comment:02/2023 Previous Pap [facility] Comment:NONE GIVEN Prev. Bx [facility] [employer] [facility] Comment:NONE GIVEN SOURCE: [facility] Comment:Cervix, Endocervix Pap, specimen adequacy [facility] Comment: Satisfactory for evaluation. Endocervical/transformation zone component present. HPV interp [facility] [employer] [facility] Comment: Cytology Results: Negative for intraepithelial lesion or malignancy. 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 [address] Comment [facility] [employer] [facility] Comment: EXPLANATORY NOTE: The Pap is a [...] Client Letter) showing TIS test codes, see www.[employer]/Resources, and navigate to Well-Woman>Physician Materials>TIS Client Letter. You can also call for test code assistance. Human papillomavirus DNA, High Risk E6/E7 Not Detected NOT DETECTED [employer] [facility] Comment: Not Detected High Risk HPV types (16,18,31,33,35,39,45,51,52, 56,58,59,66,68) were not detected. Other HPV types which cause anogenital lesions may be present. The significance of the other types of HPV in malignant processes has not been established. Methodology: Real Time PCR Thin prep 06/25/2023 2:09 PM DAY CARE HOME MOTHER 06/28/2023 6:45 AM DAY CARE HOME MOTHER Joseline Tapia NP LAB CYTOLOGY ORDERABLES Final Re sult ALIN [facility] [address] [place] [address] [employer] [address] [facility] [place] [address] * Screening Mammogram Bilateral W Erik (01/01/2021 [...] Most Recently Relevant to Health Maintenance Insurance [facility] Care Teams Review Specialist Relationship Specialty Start Date End Date Taz Jameson MD [facility] - General 09/29/19
[2025-04-13 14:43] VITALS: BP 182/87; PULSE 80; RESP 18; TEMP 36.4; O2SAT 99
--- NOTE | 2025-04-13 15:06 | ED.URI ---
HPI - URI/Sore Throat General Chief Complaint: Upper Respiratory Infection Stated Complaint: Runny Nose/Sore Throat/Ear Pain/Diarrhea Time Seen by Provider: 04/13/25 15:07 Source: patient Mode of arrival: ambulatory Limitations: no limitations History of Present Illness HPI Narrative: 49-year-old female presents with complaint of fatigue, sore throat, body aches, chills, diarrhea and congestion for 2 days. Afebrile. Not taking any qtth-fbc-njuhrbe medications to treat her symptoms. No chest pain or shortness of breath. Patient concern for strep throat. All systems reviewed and negative except as noted above. Related Data Home Medications ?Medication ?Instructions ?Recorded ?Confirmed ?Last Taken ?Type drospirenone (contraceptive) 4 mg 06/21/24 Unknown History (28) tablet (Slynd) Allergies Allergy/AdvReac Type Severity Reaction Status Date / Time Penicillins Allergy Hives Verified 10/03/24 11:32 [facility] Past Medical History Medical History Asthma UTI (urinary tract infection) Bronchitis Surgical History Surgical History No pertinent past surgical history Family History Family History (Updated 10/03/24 @ 11:55 by SUSANA ColeP, ) Mother Family history non-contributory Social History Social History Smoking status: Current every day smoker Tobacco type: cigarettes Alcohol intake: current Alcohol use details: social Substance use: unknown Living arrangements: with family Gender identity (if verbalized by the patient): Female Comments At time of signature, agree with nursing past medical, surgical, social and family history. There is no relevant family history pertinent to the presenting complaint. Exam Narrative: GENERAL: This is a well-nourished, well-developed patient, in no apparent distress. HEAD: normocephalic, atraumatic. EYES: PERRL. Sclera clear/white. Vision is grossly intact. EARS: External ears normal, auditory canals clear and without drainage, TMs normal without perforation. Hearing grossly intact. NOSE: External nose normal with Clear nasal drainage THROAT: Mucous membranes moist, Mild erythema with mild swelling. No exudates. clear postnasal drainage. NECK: Neck supple, non-tender without lymphadenopathy, masses or thyromegaly. CARDIOVASCULAR: Regular rate and rhythm without murmurs, gallops, or rubs. RESPIRATORY: Clear to auscultation. Breath sounds equal bilaterally. No wheezes, rales, or rhonchi. SKIN: warm, Dry, intact with no suspicious lesions or rash, good texture and turgor. NEURO: awake, alert, and oriented to person, place and time. There were no obvious focal neurologic abnormalities. EXTREMITIES: No joint tenderness, effusion, or edema noted. Course Course Level of Care: Express Care Visit Vital Signs Vital signs: Vital Signs Temperature 36.4 C 04/13/25 14:43 Pulse Rate 80 04/13/25 14:43 Respiratory Rate 18 04/13/25 14:43 Blood Pressure 182/87 H 04/13/25 14:43 Pulse Oximetry 99 04/13/25 14:43 Oxygen Delivery Room Air 04/13/25 14:43 Temperature 36.4 C 04/13/25 14:43 Pulse Rate 80 04/13/25 14:43 Respiratory Rate 18 04/13/25 14:43 Blood Pressure 182/87 H 04/13/25 14:43 Pulse Oximetry 99 04/13/25 14:43 Oxygen Delivery Room Air 04/13/25 14:43 Reviewed MDM - URI/Sore Throat MDM Narrative Medical decision making narrative: negative COVID, influenza and strep. Strep culture ordered. Patient is well-appearing, nontoxic. Recommend hnkz-obs-zvienph medications to treat viral symptoms. Differential Diagnosis Differential diagnosis: Likely upper respiratory infection, sinusitis, viral infection and pharyngitis Lab Data Labs: Lab Results 04/13/25 Range/Units 15:16 POC Influenza A Ag Negative (Negative) POC Influenza B Ag Negative (Negative) POC SARS CoV-2 Ag Negative (Negative) POC Grp A Strep Screen Negative (Negative) Discharge Plan Discharge Clinical Impression: Upper respiratory infection, viral Patient Disposition: Home Condition: Stable Instructions: Upper Respiratory Infection (ED) Additional Instructions: Your strep, COVID, and influenza test were negative today. A strep culture was ordered and results will take 48 hours. If your strep culture is positive we will call you at that time and prescribed an antibiotic. Your symptoms are viral and may last 10-14 days. Taking crbb-nou-nwvutbc medication to treat her symptoms such as DayQuil NyQuil cold and flu. Take as directed on packaging. Drink plenty of water and rest. See your doctor if symptoms are not improving. Patient Language: Nepali Prescriptions: No Action Slynd 4 mg (28) tablet ibuprofen 800 mg tablet 800 mg PO TID PRN (Reason: pain) Qty: 15 0RF Follow-up/Referrals: PHYSICIAN,BAG FILLER MACHINE OPERATOR [Primary Care Provider, Internal Medicine] Stand Alone Forms: Work/School Release IP Time of Disposition: 15:17
[2025-04-13 15:18] LABS: EDCOVIDSCREEN Negative (Negative); EDINFLUASCREEN Negative (Negative); EDINFLUBSCREEN Negative (Negative); EDSTREPNEGPOS1 Negative (Negative)
== END 2025-04-13 15:22 | disposition home or self-care (01) ==
PROVIDERS: Emergency Provider Nurse Practitioner Family
DX: J06.9 Acute upper respiratory infection, unspecified (principal); Z20.822 Contact with and (suspected) exposure to COVID-19; F17.210 Nicotine dependence, cigarettes, uncomplicated; J45.909 Unspecified asthma, uncomplicated
CPT/HCPCS: 87081; 87426; 87804; 87880; 99213; G0463